=== PATIENT | female | born 1990 | race Caucasian/White ===

== ENCOUNTER → 2021-01-20 | Outpatient (CLI) | payer BC ==
[~2021-01-20] MED LIST: PRENATAL VITAM1 EAC3 PO
[2021-01-20 10:48] LABS: URINE CREATININE 27.8 mg/dL
== END ==
LOC: LAB 09:14
PROVIDERS: Internal Medicine Nephrology
DX: N17.9 Acute kidney failure, unspecified (principal)
CPT/HCPCS: 80053; 81001; 82043; 82570; 84156

== ENCOUNTER → 2021-01-24 | Outpatient (CLI) | payer BC | LOC: EXRD 13:14 | DX: O99.891 Other specified diseases and conditions complicating pregnancy (principal); N17.9 Acute kidney failure, unspecified; N13.30 Unspecified hydronephrosis; Z3A.11 11 weeks gestation of pregnancy | CPT/HCPCS: 76775 ==

== ENCOUNTER → 2021-02-07 | Outpatient (CLI) | payer BC | LOC: KOH-I 14:17 | DX: N15.1 Renal and perinephric abscess (principal); N13.1 Hydronephrosis with ureteral stricture, not elsewhere classified; N28.89 Other specified disorders of kidney and ureter | CPT/HCPCS: 74181 ==

== ENCOUNTER → 2021-03-10 | Outpatient (CLI) | payer BC ==
[2021-03-11 08:13] LABS: A/G RATIO 1.2 (1.2-2.2); ALKALINE PHOSPHATASE, S 106 IU/L (44-121); ALT (SGPT) 7 IU/L (0-32); AST (SGOT) 14 IU/L (0-40); BILIRUBIN, TOTAL <0.2 mg/dL (0.0-1.2); BUN 13 mg/dL (6-20); BUN/CREATININE RATIO 12 (9-23); CALCIUM, SERUM 8.8 mg/dL (8.7-10.2); CARBON DIOXIDE, TOTAL 20 mmol/L (20-29); CHLORIDE, SERUM 105 mmol/L (96-106); CREATININE, SERUM 1.13 mg/dL (0.57-1.00); EGFR IF AFRICN AM 76 (>59); EGFR IF NONAFRICN AM 66 (>59); GLOBULIN, TOTAL 3.1 g/dL (1.5-4.5); GLUCOSE, SERUM 106 mg/dL (65-99); POTASSIUM, SERUM 4.1 mmol/L (3.5-5.2); PROTEIN, TOTAL, SERUM 6.7 g/dL (6.0-8.5); SODIUM, SERUM 140 mmol/L (134-144)
[2021-03-11 10:10] LABS: CREATININE, URINE 37.8 mg/dL (Not Estab.)
== END ==
LOC: LAB 10:20
PROVIDERS: Internal Medicine Nephrology
DX: N17.9 Acute kidney failure, unspecified (principal)
CPT/HCPCS: 36415; 80053; 81001; 82043; 82570; 84156

== ENCOUNTER → 2021-05-17 | Outpatient (CLI) | payer BC | LOC: LAB 09:59 | PROVIDERS: Internal Medicine Nephrology | DX: N17.9 Acute kidney failure, unspecified (principal) | CPT/HCPCS: 36415; 80053; 81001; 82043; 82570; 84156 ==

== ENCOUNTER → 2021-06-05 | Outpatient (CLI) | payer BC | LOC: US 13:21 | DX: N17.9 Acute kidney failure, unspecified (principal); N13.30 Unspecified hydronephrosis ==

== ENCOUNTER → 2021-06-06 | Outpatient (CLI) | payer BC ==
[2021-06-06 10:41] LABS: URINE TOTAL PROTEIN 132 mg/dl
[2021-06-07 10:16] LABS: CREATININE, URINE 70.9 mg/dL (Not Estab.)
== END ==
LOC: LAB 09:34
PROVIDERS: Internal Medicine Nephrology
DX: N17.9 Acute kidney failure, unspecified (principal)
CPT/HCPCS: 80053; 81001; 82043; 82570; 84156

== ENCOUNTER 2021-07-20 09:10 | Outpatient (CLI) | payer BC ==
[2021-07-20 10:07] LABS: HEMOGLOBIN 11.8 gm/dl (12.3-15.3); RED BLOOD COUNT 3.74 M/UL (4.00-5.10)
== END 2021-07-20 11:48 | disposition home or self-care (01) ==
LOC: GENOP 09:10
PROVIDERS: Obstetrics & Gynecology
DX: O36.8330 Maternal care for abnormalities of the fetal heart rate or rhythm, third trimester, not applicable or unspecified (principal); O12.13 Gestational proteinuria, third trimester; O99.891 Other specified diseases and conditions complicating pregnancy; R79.89 Other specified abnormal findings of blood chemistry; Z90.5 Acquired absence of kidney; Z3A.35 35 weeks gestation of pregnancy
CPT/HCPCS: 80053; 81001; 83615; 84550; 85025; 85610; 85730; G0463

== ENCOUNTER → 2021-08-31 | Outpatient (CLI) | payer BC ==
[~2021-08-31] MED LIST changes: +DOCUSATE SODIU250 MG PO; +HEPARIN 1,1000 UNIT/ SQ; +HYDROCODONE-AC1 EACH PO; +IBUPROFEN600 MG PO; +IRON325 M1 PO; +PEPCID20 MG PO
[2021-09-01 11:13] LABS: CREATININE, URINE 53.5 mg/dL (Not Estab.)
== END ==
LOC: LAB 10:59
PROVIDERS: Internal Medicine Nephrology
DX: N17.9 Acute kidney failure, unspecified (principal)
CPT/HCPCS: 36415; 80053; 81001; 82043; 82570; 84156